=== PATIENT | male | born 1970 | race Caucasian/White ===

== ENCOUNTER → 2023-12-16 06:37 | Day surgery (SDC) | payer OTHER, SELFPAY | LOC: GI 06:37 | PROVIDERS: ATTENDING PHYSICIAN Specialist; FAMILY PHYSICIAN Family Medicine | DX: Z12.11 Encounter for screening for malignant neoplasm of colon (principal); K57.30 Diverticulosis of large intestine without perforation or abscess without bleeding; Z98.0 Intestinal bypass and anastomosis status | CPT/HCPCS: G0105 ==

== ENCOUNTER 2025-03-01 23:23 | Emergency (ER) | payer OTHER, SELFPAY ==
[2025-03-01 23:33] VITALS: BP 127/83
[2025-03-02 00:52] VITALS: BP 109/75
[2025-03-02 01:00] VITALS: BP 115/78
[2025-03-02 01:04] LABS: % Basophils 0.8 % (0-2); % Eosinophils 2.4 % (0-6); % Immature Granulocytes 0.3 % (0-0.5); % Lymphocytes 37.7 % (20.5-51.1); % Monocytes 9.7 % (1.7-9.3); % Neutrophils 49.1 % (42.2-75.2); Absolute Basophils 0.1 10^3/uL (0-0.2); Absolute Eosinophils 0.2 10^3/uL (0-0.7); Absolute Lymphocytes 2.5 10^3/uL (1.2-3.4); Absolute Monocytes 0.6 10^3/uL (0.1-0.6); Absolute Neutrophils 3.2 10^3/uL (1.4-6.5); Hematocrit 39.6 % (39.0-52.0); Hemoglobin 14.4 g/dL (13.0-18.0); Mean Corp Hgb Conc. 36.4 g/dL (33.0-37.0); Mean Corpuscular Hgb 29.7 pg (27.0-31.0); Mean Corpuscular Volume 81.6 fL (80.0-94.0); Mean Platelet Volume 9.4 fL (7.4-10.4); Nucleated Red Blood Cells % 0 % (-); Platelet Count 219 10^3/uL (130-400); Red Blood Cell Count 4.85 10^6/uL (4.70-6.10); Red Cell Dist. Width 12.3 % (11.5-14.5); White Blood Cell Count 6.6 10^3/uL (4.8-10.8)
[2025-03-02 01:24] LABS: ALT (SGPT) 18 U/L (0-50); AST (SGOT) 31 U/L (17-59); Albumin 4.9 g/dl (3.5-5.0); Alkaline Phosphatase 33 U/L (38-126); Blood Urea Nitrogen 30 mg/dl (9-20); Calcium 9.5 mg/dl (8.4-10.2); Carbon Dioxide 23 mmol/L (22-30); Chloride 109 mmol/L (98-107); Estimated Creatinine Clearance 96 ml/min; Glucose 106 mg/dl (70-99); Sodium 139 mmol/L (135-145); Total Bilirubin 0.6 mg/dl (0.2-1.3); Total Protein 7.3 g/dl (6.3-8.2); eGFR > 60.00
[2025-03-02 01:27] LABS: Troponin I 0.024 ng/ml
[2025-03-02 02:00] VITALS: BP 103/63
[2025-03-02 02:48] LABS: Troponin I < 0.012 ng/ml
[2025-03-02 03:00] VITALS: BP 96/63
--- NOTE | 2025-03-02 03:15 | ED.GENMED ---
History of Present Illness
General
Chief Complaint: Chest Pain
Time Seen by Provider: 03/02/25 01:07
History of Present Illness
History of Present Illness:
55-year-old male with history of hyperlipidemia presenting to the emergency department for palpitations. Patient reports for the past week when he lays down to sleep he feels a fluttering in his chest and he also has some belching. Denies any
associated chest pain. Prior to arrival, however did report some paresthesias to the left upper extremity which concerned him. Denies any known cardiac history. Denies any present chest pain or palpitations. Denies any history of indigestion or
reflux. Denies association with food. Denies fever or cough. Denies additional acute medical complaints
Past History
Past History
ED Past Medical History: Other (Diverticulitis) and Other (Prior history of vasovagal episodes with bouts of diverticulitis in the past)
ED Past Surgical History: Appendectomy and Other (vasectomy)
Social History
Tobacco: Non-smoker
Alcohol: None
Drug: None
Personal:
Living: with family
Employment: Employed
Family History
Family History: Hypertension
Phy Exam
Physical Exam
Physical Exam:
General: Well-appearing, no clinical signs of dehydration, nontoxic and in no acute distress
HEENT: protecting airway
Neck: appears supple
CV: Normal heart rate, regular rhythm
Resp: No accessory muscle use, no increased work of breathing, lungs clear to auscultation bilaterally
Abd: Soft and non-distended, no tenderness to palpation
Extremities: No deformities, no swelling
Neuro: alert, no focal neurologic deficit
: deferred
Rectal: deferred
Psych: Normal affect
Skin: Intact
Scores
Heart Score for Chest Pain Patients
STEMI patient?: No
History: Slightly or Non-Suspicious
ECG: Normal
Age: >45 - <65 years
Risk Factors: 1 or 2 Risk Factors
Troponin: </= Normal Limit
Heart Score for Chest Pain Patients: 2
Heart Score Risk: 2.5% MACE over next 6 weeks
Course
Orders/Labs/Results
Orders:
Orders
03/01/25 23:24
EKG [Electrocardiogram (*1)] Urgent
Reason for Study: Chest Pain
EKG- Treatment ONCE
03/02/25 00:41
Electrocardiogram (*1) Urgent
Reason for Study: Chest Pain
Cardiac Monitoring- Treatment ONCE
EKG- Treatment ONCE
IV Insert/Care/Rem.- Treatment PRN
Pulse Ox/spot Check [RESP] Urgent
Quantity: 1
Special Instructions: ON ROOM AIR
03/02/25 00:45
Complete Blood Count/With Diff Urgent
Comprehensive Metabolic Panel Urgent
Troponin I Urgent
03/02/25 01:42
Electrocardiogram (*1) Urgent
Reason for Study: Palpitations
EKG- Treatment ONCE
03/02/25 01:52
Troponin I Urgent
Abnormal Lab Results
03/02/25
00:45
Monocytes % 9.7 H %
(1.7-9.3)
Chloride 109 H mmol/L
(98-107)
BUN 30 H mg/dl
(9-20)
Glucose 106 H mg/dl
(70-99)
Alkaline Phosphatase 33 L U/L
(38-126)
03/02/25 00:45
03/02/25 00:45
Vital Signs
Initial and Last Documented VS:
Initial Vital Signs
Temp Pulse Resp BP Pulse Ox
97.9 F 72 18 127/83 98
03/01/25 23:33 03/01/25 23:33 03/01/25 23:33 03/01/25 23:33 03/01/25 23:33
Last Documented Vital Signs
Temp Pulse Resp BP Pulse Ox
97.9 F 53 14 103/63 96
03/01/25 23:33 03/02/25 02:45 03/02/25 02:45 03/02/25 02:00 03/02/25 02:45
MDM/Problems Addressed
MDM/Problems Addressed:
55-year-old male with history of hyperlipidemia presenting to the emergency department for fluttering in his chest. Vital signs on arrival are normal.
On exam patient is resting comfortably, asymptomatic. Denying any chest pain or any preceding chest pain. EKG obtained on arrival, nonischemic. Patient with minimal cardiac risk factors, however given age and hyperlipidemia, will obtain
laboratory analysis including troponin. Ultimately suspect possible gastric component to symptoms, notes discomfort when laying flat and belching.
01:00 - Initial troponin is detectable, however within normal limits. Low risk by heart score. Will repeat with repeat EKG to ensure no interval worsening.
03:30 - Troponin nondetectable and repeat EKG is unchanged. Patient is sleeping on reassessment. Ultimately feel stable for discharge, however advising outpatient cardiology follow-up for stress testing for continued risk stratification.
Otherwise stable for discharge. Return precautions discussed and patient verbalized understanding
*EKG
Interpreted by ED Provider?: Yes
EKG Intrepretation Date: 03/02/25
EKG Intrepretation Time: 03:22
Interpretation: normal
Comparison EKG: no changes (11/13/14)
Heart Rate: 68
Rate: normal
Rhythm: sinus
[place]: normal axis
Interval: normal interval
QRS Pattern: normal QRS
Ischemia: no ischemia
*Critical Care Note
Total Time (30-74mins, 75-104mins- exclusive of procedures): Not Applicable
ED Attending Note
-
Portions of this chart may have been created with voice recognition software.� Occasional wrong word or��sound alike� substitutions may have occurred due to the inherent limitations of voice recognition software.
Discharge Plan
Departure
Presentation/result/management discussed w/ accepting MD/DO: Hospitalist
Patient with high blood pressure during this ER visit?: No
Condition: Good
Discharge Problem:
Chest pain
Prescriptions:
No Action
simvastatin 20 MG tablet
20 mg PO QPM
Referrals:
UNKNOWN,NO INTERVIEW [Family Provider] -
Interventions
Interventions:
*Risk Screen - Suicide Last Done: 03/01/25 23:33
*General Assessment Last Done: 03/02/25 01:10
*Neglect/Abuse Screening Last Done: 03/01/25 23:33
*ED- Fall Risk Assessment Last Done: 03/02/25 01:10
*ED COVID-19 Vaccine History Last Done: 03/02/25 01:10
ED- Cardiac Assessment Last Done: 03/02/25 01:00
Discharge Date and Time
Print Language: CANADIAN
== END 2025-03-02 03:59 | disposition home or self-care (01) ==
LOC: EMR 23:23
PROVIDERS: EMERGENCY PHYSICIAN Student in an Organized Health Care Education/Training Program
DX: R07.89 Other chest pain (principal); R00.2 Palpitations; R20.2 Paresthesia of skin; E78.00 Pure hypercholesterolemia, unspecified; Z82.49 Family history of ischemic heart disease and other diseases of the circulatory system; Z90.49 Acquired absence of other specified parts of digestive tract
CPT/HCPCS: 99283; 80053; 84484; 85025; 93005